=== PATIENT | female | born 1990 | race Caucasian/White ===

== ENCOUNTER 2021-11-20 12:21 | Observation (INO) | payer OTHER, MEDICAID, SELFPAY ==
--- NOTE | 2021-11-20 12:31 | PM.PROC.1 ---
Procedures Date/Time Date of procedure: 11/20/21 Time of procedure: 13:30 General Procedure description: External cephalic version Patient is a 31-year-old 1 para 0 EDC 12/07/2021 at 37 weeks 3 days admitted for attempt external cephalic version for breech presentation. Patient is Rh negative and did receive RhoGAM. Only other contributing factor is the patient has a marginal cord insertion from the posterior placenta. On physical exam the patient's abdomen is soft, nontender ultrasound confirms breech presentation. NST is reactive. Consent form for version was signed with the patient. Risks of distress that could result in need for emergency , rupture membranes or onset of labor that could require delivery of the fetus today, abruption that might cause the need for delivery. Consent form signed and questions answered. Patient received 0.25 mg subQ terbutaline. With 1 attempt the fetus was turned from breech to vertex. heart tones reassuring. The patient was monitored for 1 hour after successful version with the heart tones reassuring. Patient was discharged home with a abdominal binder. Precautions reviewed for the patient to call immediately if she has decreased movement, increasing abdominal pain, vaginal bleeding, contractions, rupture membranes.
[2021-11-20] MEDS: TERBUTALINE 1 MG/ML VIAL 0.25 MG SUBCUT (12:49)
== END 2021-11-20 14:58 | disposition home or self-care (01) ==
PROVIDERS: Admitting Provider Specialist; Referring Provider Specialist; Visit Provider Specialist
DX: O32.1XX0 Maternal care for breech presentation, not applicable or unspecified (principal); Z3A.37 37 weeks gestation of pregnancy
CPT/HCPCS: 59025; 59050; 59412; 76815; 96372; G0378; G0379